=== PATIENT | female | born 1980 | race Hispanic/Latino ===

== ENCOUNTER 2018-01-17 18:25 | Observation (INO) | payer OTHER ==
[~2018-01-17] VITALS: Ht 152.4 cm; Wt 77.1 kg
[2018-01-17 19:18] LABS: ABSOLUTE BASOPHIL COUNT 0 /CUMM (0.0-0.2); ABSOLUTE EOSINOPHIL COUNT 0 /CUMM (0.0-0.7); ABSOLUTE GRANULOCYTE CT 7.3 /CUMM (1.4-6.5); ABSOLUTE LYMPH COUNT 1.1 /CUMM (1.2-3.4); ABSOLUTE MONOCYTE COUNT 0.8 /CUMM (0.10-0.60); BASOPHIL % 0.2 % (0.0-2.0); EOSINOPHIL % 0.1 % (0-5); GRANULOCYTE % 79.1 % (42.2-75.2); HEMATOCRIT 36.5 % (37-47); MEAN CORPUSCULAR HGB 29.8 PG (27.0-31.0); MEAN CORPUSCULAR HGB CONC 33.1 G/DL (33.0-37.0); MEAN CORPUSCULAR VOLUME 89.8 FL (81.0-99.0); MEAN PLATELET VOLUME 7.1 FL (7.4-10.4); PLATELET COUNT 297 /CUMM (130-400); RED BLOOD CELL CT 4.07 /CUMM (4.20-5.40); WHITE BLOOD CELL COUNT 9.3 /CUMM (4.8-10.8)
--- NOTE | 2018-01-17 20:06 | ULTRASOUND REPORT ---
EXAMINATION: ULTRASOUND PELVIC, Limited obstetrical CLINICAL INFORMATION: 4 months . Abdominal pain. distress. COMPARISON: Ultrasound of 08/02/2016 TECHNIQUE: Transvaginal: Used to better visualize pelvic structures Transabdominal: Not adequate for visualization. Spectral Doppler and color Doppler exam was utilized. LMP: 09/14/2017. Gestational age 17 weeks 6 days. SOLITARIO 06/21/2018. FINDINGS: UTERUS: There is a single intrauterine gestation. The fetus is in transverse lie. There is motion and cardiac activity. heart rate is 170 bpm. The placenta is anterior in location. Cervical length 2.1 cm. biometrics: 1. Biparietal diameter. 4.38 cm. 19 weeks 2 days. 2. Head circumference. 16.73 cm. 19 weeks 3 days. 3. Abdominal circumference. 13.68 cm. 19 weeks 1 day. 4. Femur length. 3.12 cm. 19 weeks 5 days. Estimated gestational age by these measurements is 19 weeks 3 days. SOLITARIO 06/10/2018. IMPRESSION: Single intrauterine gestation. heart rate 170 bpm. Estimated gestational age is 19 weeks 3 days. SOLITARIO 06/10/2018.
--- NOTE | 2018-01-17 21:21 | ED GENERAL ADULT ---
History of Present Illness General Chief Complaint: Abdominal Pain/Flank Pain Stated Complaint: 4 MNHS PREG ABD PAIN X 2DYS Source: patient Exam Limitations: no limitations Vital Signs & Intake/Output Vital Signs & Intake/Output Vital Signs Date Time Temp Pulse Resp B/P B/P Pulse O2 O2 Flow FiO2 Mean Ox Delivery Rate 01/17 2132 99.6 89 16 101/64 100 Room Air 01/17 1850 98.4 97 18 115/73 99 Room Air Allergies Coded Allergies: NO KNOWN ALLERGIES (08/02/16) Reconcile Medications No Known Home Medications Triage Note: C/O PAIN IN R FLANK X 3 DAYS WITH SOME LOWER ABDOMINAL CRAMPING, STATES SHE IS 4 MONTHS , (GR 5, P4). Triage Nurses Notes Reviewed? yes Onset: Gradual Duration: day(s): (3) Timing: no prior history Injury Environment: home Severity: moderate Severity Numbers: 5 No Modifying Factors: none : Yes Patient currently breastfeeds: No HPI: Patient is a 37-year-old female who is currently 19 weeks presenting to the emergency department to complaining of right flank pain that began 3 days ago. Pain has been constant. Pain got worse today so she decided come in for evaluation. Pain is sharp and stabbing at times. Positive nausea no vomiting. Patient reports tactile fevers at home. Last dose of Tylenol WAS AT NOON. No sick contacts or recent travel. Denies recent antibiotic use. No history of similar pain in the past. Denies any heavy lifting or injuries. Pain is on the right flank, right back. Radiates intermittently to the right lower quadrant. No hematuria. Denies dysuria urgency or frequency. (Rajwinder Mack) Past History Travel History Traveled to [place] past 21 day No Medical History Any Pertinent Medical History? see below for history Neurological: NONE EENT: NONE Cardiovascular: NONE Respiratory: NONE Gastrointestinal: NONE Hepatic: NONE Renal: NONE Musculoskeletal: NONE Psychiatric: NONE Endocrine: NONE Blood Disorders: NONE Cancer(s): NONE MACHINE ADJUSTER/Reproductive: NONE Surgical History Surgical History: none Psychosocial History What is your primary language Mongolian Tobacco Use: Never used ETOH Use: denies use Family History Hx Contributory? No (Rajwinder Mack) Review of Systems Review of Systems Constitutional: Reports: no symptoms. Comments Review of systems: See HPI, All other systems negative. Constitutional, no chills or weight loss HEENT: No visual changes no sore throat no congestion Cardiovascular: No chest pain ,palpitation Skin, no jaundice no rashes Respiratory: No dyspnea cough sputum or hemoptysis GI: no vomiting : No dysuria No hematuria Muscle skeletal:, no neck pain, Neurologic: No numbness no confusion Psych: No stress anxiety or depression,. Heme/endocrine: No bruising no bleeding no polyuria or polydipsia Immunology: No splenectomy or history of AIDS (Rajwinder Mack) Physical Exam Physical Exam General Appearance: well developed/nourished, no apparent distress, alert, awake , comfortable Comments: Well-developed well-nourished person in no acute distress HEENT: Atraumatic, normocephalic Neck: Normal inspection Back: Right CVA tenderness on exam. No left CVA tenderness. Cardiovascular: Regular rate and rhythms no murmurs rubs or gallops Respiratory: Chest nontender. No respiratory distress.breath sounds clear to auscultation bilaterally Abdomen: Soft, moderate tenderness to palpation in the right lower quadrant with guarding, patient also having right flank pain thAT is reproducible on exam, no rebound tenderness, nondistended, no appreciable organomegaly. Normal bowel sounds. No ascites Extremity: No edema Neuro: Alert oriented x3 Skin: No appreciable rash on exposed skin, skin is warm and dry. Psych: Mood and affect is normal, memory and judgment is normal. Core Measures ACS in differential dx? No CVA/TIA Diagnosis: No Sepsis Present: No Sepsis Focused Exam Completed? No (Rajwinder Mack) Progress Differential Diagnoses I considered the following diagnoses in my evaluation of the patient: Hydronephrosis, pyelonephritis, appendicitis, ureterolithiasis, muscular strain Diagnostic Imaging: Viewed by Me: Ultrasound. Discussed w/RAD: Ultrasound. Radiology Impression: PATIENT: LATISHA QUINTANILLA PRESENT AGE: 37 PATIENT ACCOUNT NO: [id number] : 82 LOCATION: [facility] ORDERING PHYSICIAN: Syed OLIVARES SERVICE DATE: 01/17/18 EXAM TYPE: US - US- VIABILITY EXAMINATION: ULTRASOUND PELVIC, Limited obstetrical CLINICAL INFORMATION: 4 months . Abdominal pain. distress. COMPARISON: Ultrasound of 08/02/2016 TECHNIQUE: Transvaginal: Used to better visualize pelvic structures Transabdominal: Not adequate for visualization. Spectral Doppler and color Doppler exam was utilized. LMP: 09/14/2017. Gestational age 17 weeks 6 days. SOLITARIO 06/21/2018. FINDINGS: UTERUS: There is a single intrauterine gestation. The fetus is in transverse lie. There is motion and cardiac activity. heart rate is 170 bpm. The placenta is anterior in location. Cervical length 2.1 cm. biometrics: 1. Biparietal diameter. 4.38 cm. 19 weeks 2 days. 2. Head circumference. 16.73 cm. 19 weeks 3 days. 3. Abdominal circumference. 13.68 cm. 19 weeks 1 day. 4. Femur length. 3.12 cm. 19 weeks 5 days. Estimated gestational age by these measurements is 19 weeks 3 days. SOLITARIO 06/10/2018. IMPRESSION: Single intrauterine gestation. heart rate 170 bpm. Estimated gestational age is 19 weeks 3 days. SOLITARIO 2017. DICTATED BY: Aki Adam MD DATE/TIME DICTATED:01/17/181955 EMPLOYEE TRAINING SPECIALIST:FAZAL DATE/TIME TRANSCRIBED:01/17/181955 CONFIDENTIAL, DO NOT COPY WITHOUT APPROPRIATE AUTHORIZATION. <Electronically signed in Other Vendor System> SIGNED BY: Aki Adam MD 01/17/182005 Initial ED EKG: none Hand-Off Endorsed To: Polo Hilario MD Endorsed Time: 2303 Pending: consult Comments: 01/17/2018 11:04:[address] Ramos, would like patient transferred to childbirth center. Patient will be counseled by surgical physician accounting administrative assistant for abdominal exam. Patient has had pain for 3 days, no elevation in white blood cell count patient is afebrile. Unlikely appendicitis. Dr. Ramos recommending we start IV hydration and give 2 g Ancef. Questionable hydro-verse by low. We will obtain renal ultrasound in the morning. Discussed with Dr. Hilario and he agrees with plan. (Rajwinder Mack) Plan of Care: Orders Procedure Date/time Status Regular Diet 01/18 L Active (Sulaiman LONG,Polo Griffin) Departure Departure Time of Disposition: 2303 Disposition: STILL A PATIENT Condition: Stable Clinical Impression Primary Impression: Abdominal pain during Qualifiers: Trimester: second trimester Qualified Codes: O26.892 - Other specified related conditions, second trimester; R10.9 - Unspecified abdominal pain Referrals: Patient Has No Primary Care Dr (PCP/Family) Departure Forms: Customer Survey General Discharge Information Prescriptions: Current Visit Scripts No Known Home Medications Admission Note Spoke With: Richard LONG,Tawny Strauss Documentation of Exam: Documentation of any treatments & extenuating circumstances including Concerns Regarding Discharge (functional status, medication knowledge or non-compliance, living conditions, etc.) that warrant an admission rather than observation: Patient requiring IV hydration, serial abdominal exams, repeat labs, renal and limited abdomen ultrasound, pain control. Discharge at this time is medically harmful secondary to patient having right lower quadrant pain during and right flank pain during . Patient may need continued IV antibiotics pending ultrasound results. (Rajwinder Mack) PA/WRAPPING CHECKER Co-Sign Statement Statement: ED Attending supervision documentation- [x] I saw and evaluated the patient. I have also reviewed all the pertinent lab results and diagnostic results. I agree with the findings and the plan of care as documented in the PA's/WRAPPING CHECKER's documentation. 01/17/18, 22:42....pt with right back/flank pain, most suggestive of musculo skeletal origin, also with mild rlq tenderness to my exam.... benign labs... pt to be admitted to shop estimator, surg to consul, u/s in AM. [] I have reviewed the ED Record and agree with the PA's/WRAPPING CHECKER's documentation. [] Additions or exceptions (if any) to the PAs/WRAPPING CHECKER's note and plan are summarized below: [] (Sulaiman LONG,Polo Griffin) Critical Care Note Critical Care Note Critical Care Time: non-applicable (Rajwinder Mack) Anion Gap 11, Estimated GFR > 60, BUN/Creatinine Ratio 7.5, Glucose 86, Calcium 9.2, Total Bilirubin 0.5, AST 22, ALT 26, Alkaline Phosphatase 76, Total Protein 6.8, Albumin 3.9, Globulin 2.9, Albumin/Globulin Ratio 1.3, Beta HCG, Quant 97381.0, CBC w Diff NO MAN DIFF REQ, RBC 4.07 L, MCV 89.8, MCH 29.8, MCHC 33.1, RDW 14.0, MPV 7.1 L, Gran % 79.1 H, Lymphocytes % 12.2 L, Monocytes % 8.4, Eosinophils % 0.1, Basophils % 0.2, Absolute Granulocytes 7.3 H, Absolute Lymphocytes 1.1 L, Absolute Monocytes 0.8 H, Absolute Eosinophils 0, Absolute Basophils 0 Microbiology 01/17 2238 BLOOD: Blood Culture - ORD 01/17 2238 BLOOD: Blood Culture - ORD (Sulaiman LONG,Polo Griffin) Departure Departure Time of Disposition: 2303 Disposition: STILL A PATIENT Condition: Stable Clinical Impression Primary Impression: Abdominal pain during Qualifiers: Trimester: second trimester Qualified Codes: O26.892 - Other specified related conditions, second trimester; R10.9 - Unspecified abdominal pain Referrals: Patient Has No Primary Care Dr (PCP/Family) Departure Forms: Customer Survey General Discharge Information Prescriptions: Current Visit Scripts No Known Home Medications Admission Note Spoke With: Tawny Ramos MD Documentation of Exam: Documentation of any treatments & extenuating circumstances including Concerns Regarding Discharge (functional status, medication knowledge or non-compliance, living conditions, etc.) that warrant an admission rather than observation: Patient requiring IV hydration, serial abdominal exams, repeat labs, renal and limited abdomen ultrasound, pain control. Discharge at this time is medically harmful secondary to patient having right lower quadrant pain during and right flank pain during . Patient may need continued IV antibiotics pending ultrasound results. (Rajwinder Mack) PA/WRAPPING CHECKER Co-Sign Statement Statement: ED Attending supervision documentation- [x] I saw and evaluated the patient. I have also reviewed all the pertinent lab results and diagnostic results. I agree with the findings and the plan of care as documented in the PA's/WRAPPING CHECKER's documentation. 01/17/18, 22:42....pt with right back/flank pain, most suggestive of musculo skeletal origin, also with mild rlq tenderness to my exam.... benign labs... pt to be admitted to shop estimator, surg to consul, u/s in AM. [] I have reviewed the ED Record and agree with the PA's/WRAPPING CHECKER's documentation. [] Additions or exceptions (if any) to the PAs/WRAPPING CHECKER's note and plan are summarized below: [] (Sulaiman LONG,Polo Griffin)
[2018-01-17 21:32] VITALS: BP 101/64
--- NOTE | 2018-01-17 23:21 | Cons- General Surgery ---
General Information and HPI Consulting Request Date of Consult: 01/17/18 Requested By: Dr. Rhodes Reason for Consult: abdominal pain Exam Limitations: language barrier (danish and bhutanese speaking) History of Present Illness: 37yoF presents to ED c/o abdominal pain. She is currently 19wk , . Pain began 3 days ago, no worse, no improvement. When asked to clarify location of pain, she indicates her lower right back and flank. She has had similar pain in the past when she had "kidney infection". No lack of appetite. Denies nausea /vomiting. No change in bowel habits. No dysuria. No recent strenuous activity. Allergies/Medications Allergies: Coded Allergies: NO KNOWN ALLERGIES (08/02/16) Home Med List: No Known Home Medications Past History Medical History Cardiovascular: NONE Respiratory: NONE Gastrointestinal: NONE WEIGHT SHIFTER/Reproductive: 19wk . Psychosocial History Primary Language: Palestinian, Yakut ETOH Use: denies use Exam & Diagnostic Data Vital Signs and I&O Vital Signs Date Time Temp Pulse Resp B/P B/P Pulse O2 O2 Flow FiO2 Mean Ox Delivery Rate 01/17 2304 Room Air 01/17 2132 99.6 89 16 101/64 100 Room Air 01/17 1850 98.4 97 18 115/73 99 Room Air Physical Exam: gen- nad card- s1s2 pulm- no audible wheeze abd- gravid. slightly ttp thoughout mid and right abdomen. very ttp right low back/flank. abd soft, no r/g Last 24 Hours of Labs: Laboratory Tests 01/17 01/17 2125 1907 Chemistry Sodium (137 - 145 mmol/L) 134 L Potassium (3.5 - 5.1 mmol/L) 3.6 Chloride (98 - 107 mmol/L) 100 Carbon Dioxide (22 - 30 mmol/L) 23 Anion Gap (5 - 16) 11 BUN (7 - 17 mg/dL) 3 L Creatinine (0.5 - 1.0 mg/dL) 0.4 L Estimated GFR (>60 ml/min) > 60 BUN/Creatinine Ratio (7 - 25 %) 7.5 Glucose (65 - 99 mg/dL) 86 Calcium (8.4 - 10.2 mg/dL) 9.2 Total Bilirubin (0.2 - 1.3 mg/dL) 0.5 AST (14 - 36 U/L) 22 ALT (9 - 52 U/L) 26 Alkaline Phosphatase (<127 U/L) 76 Total Protein (6.3 - 8.2 g/dL) 6.8 Albumin (3.5 - 5.0 g/dL) 3.9 Globulin (1.9 - 4.2 gm/dL) 2.9 Albumin/Globulin Ratio (1.1 - 2.2 %) 1.3 Beta HCG, Quant (mIU/mL) 74436.0 Hematology CBC w Diff NO MAN DIFF REQ WBC (4.8 - 10.8 /CUMM) 9.3 RBC (4.20 - 5.40 /CUMM) 4.07 L Hgb (12.0 - 16.0 G/DL) 12.1 Hct (37 - 47 %) 36.5 L MCV (81.0 - 99.0 FL) 89.8 MCH (27.0 - 31.0 PG) 29.8 MCHC (33.0 - 37.0 G/DL) 33.1 RDW (11.5 - 14.5 %) 14.0 Plt Count (130 - 400 /CUMM) 297 MPV (7.4 - 10.4 FL) 7.1 L Gran % (42.2 - 75.2 %) 79.1 H Lymphocytes % (20.5 - 51.1 %) 12.2 L Monocytes % (1.7 - 9.3 %) 8.4 Eosinophils % (0 - 5 %) 0.1 Basophils % (0.0 - 2.0 %) 0.2 Absolute Granulocytes (1.4 - 6.5 /CUMM) 7.3 H Absolute Lymphocytes (1.2 - 3.4 /CUMM) 1.1 L Absolute Monocytes (0.10 - 0.60 /CUMM) 0.8 H Absolute Eosinophils (0.0 - 0.7 /CUMM) 0 Absolute Basophils (0.0 - 0.2 /CUMM) 0 Urines Urine Color (YEL,AMB,STR) YEL Urine Clarity (CLEAR) CLEAR Urine pH (5.0 - 8.0) 7.0 Ur Specific [place] (1.001 - 1.035) <= 1.005 Urine Protein (NEG,<30 MG/DL) NEG Urine Ketones (NEG) 40 H Urine Nitrite (NEG) NEG Urine Bilirubin (NEG) NEG Urine Urobilinogen (0.1 - 1.0 EU/dl) 0.2 Ur Leukocyte Esterase (NEG) TRACE H Ur Microscopic SEDIMENT EXAMINED Urine WBC (0 - 2 /HPF) 1-3 H Ur Epithelial Cells (NONE,FEW) FEW Urine Bacteria (NEG/NONE) FEW H Urine Hemoglobin (NEG) NEG Urine Glucose (N MG/DL) NEG Assessment/Plan Assessment/Plan A- 37yoF currently 19wk gestation, with reproducible right flank/back pain, likely musculoskeletal vs. obstetrical. labs WNL. No surgical intervention needed. P- OB eval. No role for acute general surgical involement at this time. Reconsult if clinical condition worsens and further general surgery evaluation required dw dr navas Consult Acknowledgment - Thank you for your consult request.
--- NOTE | 2018-01-18 10:49 | ULTRASOUND REPORT ---
EXAMINATION: US ABDOMEN LIMITED CLINICAL INFORMATION: Right lower quadrant pain in a patient. Rule out appendicitis. COMPARISON: viability ultrasound dated 01/17/2018. TECHNIQUE: Real-time imaging of the right lower quadrant was performed using graded compression technique and real-time assessment by the reading radiologist. FINDINGS: The appendix is not demonstrated due to overlying gas and stool. No inflammatory changes are identified in the right lower quadrant. There is no free fluid. IMPRESSION: Evaluation of the appendix is non-diagnostic due to overlying gas and stool. No inflammatory changes identified in the right lower quadrant.
--- NOTE | 2018-01-18 10:52 | ULTRASOUND REPORT ---
EXAMINATION: US RETROPERITONEAL COMPLETE (RENAL) CLINICAL INFORMATION: Right-sided flank pain. Rule out hydronephrosis.. COMPARISON: None TECHNIQUE: Real-time imaging of the kidneys and bladder. FINDINGS: RIGHT KIDNEY: 11.4 x 5.1 x 5.5 cm (SAG x AP x TRV). The kidney is normal in size, contour, and echogenicity. Renal cortical thickness is normal. No calculi or focal parenchymal lesions. Mild fullness of the right renal collecting system and right renal pelvis is seen. LEFT KIDNEY: 10.3 x 5.7 x 5.5 cm (SAG x AP x TRV). The kidney is normal in size, contour, and echogenicity. Renal cortical thickness is normal. No calculi or focal parenchymal lesions. No hydronephrosis. BLADDER: Well-distended and normal. Bilateral ureteral jets are demonstrated. Prevoid bladder volume is 200 mL. Postvoid, the bladder volume is nearly completely empty with no significant postvoid residual.. IMPRESSION: 1. Mild right-sided hydronephrosis is seen. This may be physiologic in this patient. Close clinical correlation is requested. 2. Left kidney normal. 3. Bladder normal.
== END 2018-01-18 13:06 ==
LOC: ERH 18:25 → ERHI 22:59 → ERH 22:59 → ERHI 23:00 → ENRESERV 23:41 → GNO 01-18 00:58
PROVIDERS: Physician Assistant Medical
DX: O47.02 False labor before 37 completed weeks of gestation, second trimester (principal); Z3A.19 19 weeks gestation of pregnancy
CPT/HCPCS: 76775; 81001; 87040; 96365; 96366; G0378; J0690; J7120

== ENCOUNTER 2018-06-07 10:10 | Inpatient (IN) | payer OTHER ==
[~2018-06-07] VITALS: Ht 152.4 cm; Wt 79.8 kg
--- NOTE | 2018-06-07 11:53 | History & Physical Pre-Op ---
General Information and HPI MD Statement: I have seen and personally examined LATISHA QUINTANILLA and documented this H&P. The patient is a 38 year old F who presented with a patient stated chief complaint of ctx[]. History of Present Illness: A 7-year-old 6 para 4014 on at 39 weeks' gestation who presents for labor patient has been on late registrant to my practice at 30 weeks gestation eyes she was too late for the AFP eyes she has advanced maternal age she was offered an amniocentesis to go to care home on the patient's care has been otherwise uneventful Allergies/Medications Allergies: Coded Allergies: NO KNOWN ALLERGIES (08/02/16) Home Med list No Known Home Medications Past History Medical History Neurological: NONE EENT: NONE Cardiovascular: NONE Respiratory: NONE Gastrointestinal: NONE Hepatic: NONE Renal: NONE Musculoskeletal: NONE Psychiatric: NONE Endocrine: NONE Blood Disorders: NONE Cancer(s): NONE STAFFING PROGRAM MANAGER/Reproductive: NONE Surgical History Pertinent Surgical History: none Past Family/Social History Psychosocial History Smoking Status: Never Smoked Review of Systems Review of Systems: Routine point review of systems Exam & Diagnostic Data Last 24 Hrs of Vital Signs/I&O Intake & Output 06/07 1600 06/07 0800 06/07 0000 Intake Total Output Total Balance Patient 176 lb Weight Physical Exam: Pleasant petite female in no apparent distress heart rate is reactive contractions every 3 minutes [place] HEENT anicteric Lungs clear Abdomen soft estimated weight 3600 g Pelvic is 5-6 cm 90% membranes intact vertex Extremities +1 edema Assessment/Plan Assessment/Plan: Assessment is term grand multipara advanced maternal age labor plan observe for As Ranked By This Provider Problem List: 1.
[2018-06-07 13:00] LABS: ABSOLUTE BASOPHIL COUNT 0 /CUMM (0.0-0.2); ABSOLUTE EOSINOPHIL COUNT 0 /CUMM (0.0-0.7); ABSOLUTE GRANULOCYTE CT 5.7 /CUMM (1.4-6.5); ABSOLUTE LYMPH COUNT 1.3 /CUMM (1.2-3.4); ABSOLUTE MONOCYTE COUNT 0.4 /CUMM (0.10-0.60); BASOPHIL % 0.2 % (0.0-2.0); EOSINOPHIL % 0.3 % (0-5); HEMATOCRIT 33.7 % (37-47); MEAN CORPUSCULAR HGB 29.1 PG (27.0-31.0); MEAN CORPUSCULAR HGB CONC 33.6 G/DL (33.0-37.0); MEAN CORPUSCULAR VOLUME 86.6 FL (81.0-99.0); MEAN PLATELET VOLUME 8.5 FL (7.4-10.4); PLATELET COUNT 304 /CUMM (130-400); RBC DISTRIBUTION WIDTH 15.5 % (11.5-14.5); WHITE BLOOD CELL COUNT 7.4 /CUMM (4.8-10.8)
--- NOTE | 2018-06-07 14:49 | Labor & Delivery Summary ---
Delivery Summary Vaginal Delivery: Vaginal: vertex Episiotomy/Lacerations: Episiotomy/Lacerations: none Placenta: Placenta: nuchal cord (x_) (1) Anesthesia: none Additional Comments: WITH MECONIUM VIBLE FEMALE PT OVER INTACT PERINEUM .PLACENT CAN1 3 VESSEL BY CCT
--- NOTE | 2018-06-08 08:53 | PN- Post Delivery/GYN ---
Subjective Subjective: NO COMPLAINTS Objective Last 24 Hrs of Vital Signs/I&O PER CHART Physical Exam: PE THIN HF IN NAD HEENT PERRLA EOMI ABD SOFT NT FUNDUS FIRM NT LOCHIA MINIMAL EXT -EDEMA-HOMANS Assessment/Plan Assessment/Plan ASSESS S/P PLANCONT PPC
[2018-06-08] MEDS ORDERED: IBUPROFEN800 M1 PO (08:56)
[2018-06-08 10:18] LABS: ABSOLUTE BASOPHIL COUNT 0 /CUMM (0.0-0.2); ABSOLUTE EOSINOPHIL COUNT 0 /CUMM (0.0-0.7); ABSOLUTE GRANULOCYTE CT 8.4 /CUMM (1.4-6.5); ABSOLUTE LYMPH COUNT 1.4 /CUMM (1.2-3.4); ABSOLUTE MONOCYTE COUNT 0.7 /CUMM (0.10-0.60); BASOPHIL % 0.2 % (0.0-2.0); EOSINOPHIL % 0.3 % (0-5); GRANULOCYTE % 79.6 % (42.2-75.2); HEMATOCRIT 34.7 % (37-47); MEAN CORPUSCULAR HGB CONC 33.5 G/DL (33.0-37.0); MEAN CORPUSCULAR VOLUME 86.8 FL (81.0-99.0); PLATELET COUNT 277 /CUMM (130-400); RBC DISTRIBUTION WIDTH 15.8 % (11.5-14.5); RED BLOOD CELL CT 3.99 /CUMM (4.20-5.40); WHITE BLOOD CELL COUNT 10.5 /CUMM (4.8-10.8)
--- NOTE | 2018-06-09 09:14 | PN- OBGYN ---
Surgical Brief Attending Note Brief Attending Note: Seen and evaluated No complaints VSS and afebrile Fundus firm Hct 34.7 and rh positive Urine culture [id number] gram negative rods PPD#2 s/p vaginal ID. Afebrile and asymptomatic. This was a clean catch sample taken during labor. She also received Cefazolin 2 grams. UA showed no pyruria. In my opinoin no need for additional antibiotics TDap prior to dc with benefits reviewed Pain mgmt strategies reviewed No findings of preeclampsia 4-[address] follow up with Dr Richard CASANOVA home today.
== END 2018-06-09 09:40 | DRG 560 ==
LOC: CBCO 10:10 → GNO 11:26
PROVIDERS: Specialist
PROC: 10E0XZZ Delivery of Products of Conception, External Approach (ICD-10-PCS; principal; 2018-06-07)
PROC: 10907ZC Drainage of Amniotic Fluid, Therapeutic from Products of Conception, Via Natural or Artificial Opening (ICD-10-PCS; principal; 2018-06-07)
DX: O69.81X0 Labor and delivery complicated by cord around neck, without compression, not applicable or unspecified (principal); Z3A.36 36 weeks gestation of pregnancy; Z37.0 Single live birth; O77.0 Labor and delivery complicated by meconium in amniotic fluid
CPT/HCPCS: GNOS; 81001; 87086; J7120